=== PATIENT | male | born 2005 | race Caucasian/White ===

== ENCOUNTER 2025-02-18 16:08 | Outpatient (REF) | payer OTHER, SELFPAY | END 2025-02-18 16:09 | disposition home or self-care (01) | LOC: LBN 16:08 | PROVIDERS: Visit Provider Physician Assistant Medical | DX: Z02.5 Encounter for examination for participation in sport (principal) | CPT/HCPCS: 85660 ==

== ENCOUNTER 2025-02-25 12:49 | Outpatient (CLI) | payer OTHER, SELFPAY ==
--- NOTE | 2025-02-25 12:45 | RT.EKG_ITS ---
APPROVED REPORT Exam: Resting ECG Reason for Exam: NPW Baseline needed Patient Location: O HR:40 bpm ECG Measurements Heart Rate 40 AXIS NV 158 P 72 QRSd 99 QRS 77 QT 405 T 59 QTc 331 Conclusion Sinus bradycardia...rate< 50 Otherwise normal ECG
== END 2025-02-25 12:50 | disposition home or self-care (01) ==
LOC: DI.CARD 12:54
PROVIDERS: Visit Provider Internal Medicine Cardiovascular Disease
DX: R00.1 Bradycardia, unspecified (principal)
CPT/HCPCS: 93010

== ENCOUNTER → 2025-05-10 00:27 | Outpatient (CLI) | payer OTHER, SELFPAY ==
--- NOTE | 2025-05-10 | DI.MRI_ITS ---
Exam(s) MR LOWER JOINT LT WO EXAM: MR LOWER JOINT LT WO CLINICAL HISTORY: LT ACL TEAR,SPRAIN ACL,S83.512A. TECHNIQUE: Multiplanar multisequence MRI was performed. COMPARISON: MR MRI Knee Left wo Contrast from 10/09/2021 MR MRI Knee Left wo Contrast from 06/17/2023 CR XR KNEE 4 VIEW LEFT from 02/24/2025 FINDINGS: BONES: There is no fracture or contusion pattern. JOINTS: There is thinning of the articular cartilage versus artifact overlying the lateral femoral condyle. No effusion is present. TENDONS: Extensor mechanism: Unremarkable. Medial retinaculum: Unremarkable. Lateral retinaculum: Unremarkable. Popliteus: Unremarkable. MUSCLES: Unremarkable. MENISCI: The medial meniscus is unremarkable. There is a decreased size and mild increased signal seen in the posterior horn of the lateral meniscus. SOFT TISSUES: Unremarkable. LIGAMENTS: Anterior Cruciate: The patient has had a prior anterior cruciate ligament repair. The ligament is intact. Posterior Cruciate: Unremarkable. Medial Collateral:Unremarkable. Lateral Collateral: Unremarkable. OTHER: IMPRESSION: 1. Intact anterior cruciate ligament. 2. Artifact is seen in the femoral notch and adjacent to the lateral femoral condyle. 3. Artifact versus articular cartilage defect overlying the posterior aspect of the lateral femoral condyle. 4. Question of a tear of the posterior horn of the lateral meniscus versus artifact. DATA REPOSITORY:
== END ==
LOC: DI 00:27
PROVIDERS: Visit Provider Physician Assistant
DX: S83.512A Sprain of anterior cruciate ligament of left knee, initial encounter (principal)
CPT/HCPCS: 73721